=== PATIENT | female | born 2000 | race Caucasian/White ===

== ENCOUNTER → 2023-09-24 | Outpatient (CLI) | payer BC ==
[~2023-09-24] MED LIST: COZAAR 25MG25 MG/TAB PO; PLAQUENIL 200M200 MG PO; PRILOSEC 20MG20 MG PO; PROZAC 10MG10 MG PO; ZOFRAN 4MG T4 MG/TAB PO
== END ==
LOC: COL.RAD 10:08
DX: G43.E09 Chronic migraine with aura, not intractable, without status migrainosus (principal); R53.82 Chronic fatigue, unspecified; G47.00 Insomnia, unspecified; R29.898 Other symptoms and signs involving the musculoskeletal system; Z83.49 Family history of other endocrine, nutritional and metabolic diseases